=== PATIENT | female | born 1930 | race Caucasian/White ===

== ENCOUNTER → 2016-10-17 | Outpatient (CLI) | payer OTHER, MEDICARE ==
[~2016-10-17] MED LIST: ALD2525 PO; ALUMCHW2 PO; ASPEC81 PO; ASPI81TA21 PO; ATOR10TA88 PO; BENZ100C84 PO; BUPR100T8 PO; CITA20TA4 PO; CLOB-58 TOP; FRC PO; HYDR-3785 PO; LEVO-217 PO; LEVO50TA PO; MAGN250T3 PO; MAGN400T6 PO; METHPOW7 PO; MULT-190 PO; OXYC-106 PO; POLY335019 PO; POLY335040 PO; POTATAB PO; RANI150T3 PO; SENN-65 PO; SERT-234 PO; SPIR50TA PO
[2016-10-17 17:19] LABS: HEMATOCRIT 36.8 % (37-47); MEAN CELL VOLUME 80.7 fL (80-100); MEAN PLATELET VOLUME 9.4 fL (7.4-10.4); PLATELET COUNT 247 K/uL (130-400); RED BLOOD COUNT 4.56 M/uL (4.2-5.4); WHITE BLOOD COUNT 17.51 K/uL (4.8-10.8)
[2016-10-17 17:33] LABS: BLOOD UREA NITROGEN 16 mg/dl (7-18); BUN/CREATININE RATIO 19.5 (10-20); CARBON DIOXIDE 28 mmol/L (21-32); CHLORIDE 105 mmol/L (98-107); GLUCOSE 89 mg/dl (70-99); POTASSIUM 4.4 mmol/L (3.5-5.1); SODIUM 141 mmol/L (136-145)
[2016-10-17 18:17] LABS: BASO % 0.3 %; BASO ABS # 0.05 K/uL (0-0.2); COMPLETE YES; EOS % 1.7 %; IG% 0.3 %; LYMPH % 36.1 %; LYMPH ABS # 6.32 K/uL (1.2-3.4); MONO % 6.7 %; NEUT % 54.9 %; SMUDGE CELLS PRESENT
== END | disposition home or self-care (01) ==
LOC: C.LAB1850 16:02
PROVIDERS: ATTEND Internal Medicine
DX: E03.9 Hypothyroidism, unspecified (principal); R53.1 Weakness

== ENCOUNTER → 2016-11-03 | Outpatient (CLI) | payer OTHER, MEDICARE ==
--- NOTE | 2016-11-03 12:30 | DIAGNOSTIC IMAGING REPORT ---
CHEST 2 VIEWS ROUTINE CLINICAL HISTORY: R05 [id number] cough. COMPARISON STUDY: No previous studies for comparison. FINDINGS: Minimal retrocardiac infiltrate of the posterior costophrenic angle. Lungs otherwise are clear. No evidence for cardiac enlargement. IMPRESSION: Minimal infiltrative process costophrenic angle Electronically signed by: Kimani George M.D. 11/03/2016 12:29 PM Dictated Date/Time: 11/03/2016 12:28 PM
== END | disposition home or self-care (01) ==
LOC: C.RAD1850 12:05
PROVIDERS: ATTEND Physician Assistant
DX: R05 Cough (principal)

== ENCOUNTER 2016-11-18 21:30 | Emergency (ER) | payer OTHER, MEDICARE ==
[~2016-11-18] VITALS: Ht 167.6 cm; Wt 65.1 kg
[~2016-11-18 21:30] MED LIST changes: -ALUMCHW2 PO; -ASPI81TA21 PO; +ATOR10TA82 PO; -ATOR10TA88 PO; -BENZ100C84 PO; -LEVO50TA PO; -MAGN400T6 PO; -METHPOW7 PO; -MULT-190 PO; -POLY335019 PO; -SPIR50TA PO
[2016-11-18 21:41] VITALS: TEMP 36.5; Ht 167.6 cm; Wt 65.1 kg
[2016-11-18 21:47] VITALS: O2SAT 96
[2016-11-18] MEDS ORDERED: POLY335019 PO (22:18)
[2016-11-18] MEDS ORDERED: METHPOW7 PO (22:18)
[2016-11-18] MEDS ORDERED: BENZ100C84 PO (22:18)
[2016-11-18] MEDS ORDERED: MULT-190 PO (22:18)
[2016-11-18] MEDS ORDERED: OXYC-106 PO (22:18)
[2016-11-18] MEDS ORDERED: LEVO50TA PO (22:18)
[2016-11-18] MEDS ORDERED: SPIR50TA PO (22:18)
[2016-11-18] MEDS ORDERED: ASPI81TA21 PO (22:18)
[2016-11-18] MEDS ORDERED: MAGN400T6 PO (22:18)
[2016-11-18] MEDS ORDERED: ALUMCHW2 PO (22:23)
[2016-11-18] MEDS ORDERED: OXYCODONE/ACETAMINOPHEN 5-325 TAB PO ONE (22:45)
[2016-11-18 23:06] LABS: HEMATOCRIT 37.2 % (37-47); MEAN CELL VOLUME 78.6 fL (80-100); MEAN CORPUSCULAR HEMOGLOBIN 25.8 pg (25-34); MEAN CORPUSCULAR HGB CONC 32.8 g/dl (32-36); MEAN PLATELET VOLUME 8.6 fL (7.4-10.4); PLATELET COUNT 254 K/uL (130-400); RED BLOOD COUNT 4.73 M/uL (4.2-5.4); WHITE BLOOD COUNT 15.46 K/uL (4.8-10.8)
[2016-11-18 23:24] LABS: BUN/CREATININE RATIO 19.7 (10-20); CALCIUM 9.7 mg/dl (8.5-10.1); CREATININE 0.78 mg/dl (0.60-1.20); POTASSIUM 3.8 mmol/L (3.5-5.1)
--- NOTE | 2016-11-18 23:39 | EMERGENCY ROOM VISIT NOTE ---
ED Visit Note First contact with patient: 22:24 I have personally seen and evaluated the patient with the physician actuarial assistant. I agree with the diagnostic/management decisions and have personally been involved in these decisions and agree with the diagnosis.
[2016-11-19 00:30] LABS: BASO % 0.5 %; BASO ABS # 0.07 K/uL (0-0.2); COMPLETE YES; EOS % 2.5 %; IG% 0.3 %; LYMPH % 40.6 %; LYMPH ABS # 6.27 K/uL (1.2-3.4); MONO % 4.6 %; NEUT % 51.5 %
--- NOTE | 2016-11-19 03:18 | EMERGENCY ROOM VISIT NOTE ---
History First contact with patient: 22:24 Chief Complaint: FALL Stated Complaint: FALL/HEAD&BACK PAIN, FR [facility] History of Present Illness The patient is a 86 year old female who presents to the Emergency Room with complaints of fall from the toilet while at the [facility]. Patient states she laid on the ground from us in our for someone helped her. Patient complains of right hip and right knee pain. She landed on her right side. She describes the pain as throbbing, ranging in severity 5 out of 10. 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 She ambulates with a walker. Patient denies head injury, headache, neck pain, back pain, chest pain, dyspnea, abdominal pain, numbness, tingling, arm pain, thigh pain, spring pain, foot pain. Review of Systems See HPI for pertinent positives & negatives. A total of 10 systems reviewed and were otherwise negative. Past Medical/Surgical History HTN, HLP, TSH, GERD, knee replacement Social History Smoking Status: Unknown if Ever Smoked Drug Use: none Marital Status: Occupation Status: retired Current/Historical Medications Scheduled Aluminum Hydroxide-Mag Trisil (Gaviscon), 1 TAB PO PRN Aspirin Enteric Coated (Ecotrin Or Generic), 81 MG PO DAILY Atorvastatin (Lipitor), 10 MG PO QPM Bupropion (Wellbutrin Sr), 1 TAB PO QAM Hctz/Spironolactone 25MG/25MG (Aldactazide 25MG/25MG), 1 TAB PO DAILY Levothyroxine Sodium (Synthroid), 50 MCG PO DAILY Magnesium Oxide (Mag-Ox), 400 MG PO DAILY Methylcellulose (Laxative) (Citrucel Fiber Laxative), 1 TBS PO HS Ocuvite Preservision (Ocuvite Preservision), 1 TAB PO DAILY Polyethylene Glycol 3350 (Miralax), 17 GM PO DAILY Ranitidine Hcl (Zantac), 150 MG PO BID Sertraline (Zoloft), 1 TAB PO DAILY Scheduled PRN Benzonatate (Tessalon Perles), 100 MG PO TID PRN for Cough Oxycodone/Acetaminophen 10MG/325MG (Percocet 10MG/325MG), 1 TAB PO Q8 PRN for Pain Allergies Coded Allergies: Meperidine (Verified Adverse Reaction, Mild, VOMITING, 06/18/12) Physical Exam Vital Signs Date Time Temp Pulse Resp B/P Pulse Ox O2 Delivery O2 Flow Rate FiO2 11/19/16 01:22 83 16 136/68 96 Room Air 11/18/16 23:43 81 20 138/76 96 Room Air 11/18/16 21:50 88 11/18/16 21:47 96 Room Air 11/18/16 21:41 36.5 90 18 163/73 96 Room Air Physical Exam PHYSICAL EXAM: VITALS: Vitals are noted on the nurse's note and reviewed by myself. Vital signs hypertensive GENERAL: Pleasant elderly female, in no acute distress, nondiaphoretic, well- developed well-nourished. SKIN: Right hip, thigh, knee and spring erythematous concerning for pressure ulcer. Left great toe with contusion present The rest of the skin was without obvious lacerations or abrasions. Capillary reflex less than 2 seconds. HEAD: Normocephalic atraumatic. EARS: External auditory canals clear, tympanic membranes pearly khan without erythema or effusion bilaterally. No hemotympanums. No foley sign. No mastoid tenderness. EYES: Pupils equal round and reactive to light and accommodation. Conjunctivae without injection, sclerae without icterus. Extraocular movements intact. NOSE: Patent, turbinates without inflammation or discharge. No sinus tenderness. No septal hematoma or bleeding. FACE: No facial bone tenderness. Full range of motion of the jaw without tenderness. MOUTH: Mucous membranes moist. Pharynx without erythema or exudate. Uvula midline. Airway patent. Tongue does not deviate. NECK: Supple without nuchal rigidity. Cervical spine is nontender. Full range of motion of the neck without tenderness. No JVD. HEART: Regular rate and rhythm LUNGS: Clear to auscultation bilaterally without wheezes, rales or rhonchi. No dullness to percussion. No retractions or accessory muscle use. No chest wall tenderness. ABDOMEN: Positive bowel sounds x 4. Normal tympanic percussion. Soft, nontender, without masses or organomegaly. No guarding or rebound tenderness. MUSCULOSKELETAL: No tenderness of the thoracic or lumbar spine. Right hip tender to palpation with increased pain with range of motion, right knee tender to palpation chronically deformed per patient unchanged, right thigh, spring, foot and ankle nontender to palpation.. Full range of motion without tenderness to palpation in all other extremities. Peripheral pulses 2+. NEURO: Patient was alert and oriented to person place and time. Normal Mini- Mental status exam. Normal sensation to light and sharp touch Cerebellar function intact. No focal neurological deficits. Medical Decision & Procedures Laboratory Results 11/18/16 22:45 Red Blood Count 4.73, Mean Corpuscular Volume 78.6, Mean Corpuscular Hemoglobin 25.8, Mean Corpuscular Hemoglobin Concent 32.8, Mean Platelet Volume 8.6, Neutrophils (%) (Auto) 51.5, Lymphocytes (%) (Auto) 40.6, Monocytes (%) (Auto) 4.6, Eosinophils (%) (Auto) 2.5, Basophils (%) (Auto) 0.5, Neutrophils # (Auto) 7.98, Lymphocytes # (Auto) 6.27, Monocytes # (Auto) 0.71, Eosinophils # (Auto) 0.38, Basophils # (Auto) 0.07 11/18/16 22:45 Test 11/18/16 22:45 White Blood Count 15.46 K/uL (4.8-10.8) Red Blood Count 4.73 M/uL (4.2-5.4) Hemoglobin 12.2 g/dL (12.0-16.0) Hematocrit 37.2 % (37-47) Mean Corpuscular Volume 78.6 fL (80-100) Mean Corpuscular Hemoglobin 25.8 pg (25-34) Mean Corpuscular Hemoglobin Concent 32.8 g/dl (32-36) Platelet Count 254 K/uL (130-400) Mean Platelet Volume 8.6 fL (7.4-10.4) Neutrophils (%) (Auto) 51.5 % Lymphocytes (%) (Auto) 40.6 % Monocytes (%) (Auto) 4.6 % Eosinophils (%) (Auto) 2.5 % Basophils (%) (Auto) 0.5 % Neutrophils # (Auto) 7.98 K/uL (1.4-6.5) Lymphocytes # (Auto) 6.27 K/uL (1.2-3.4) Monocytes # (Auto) 0.71 K/uL (0.11-0.59) Eosinophils # (Auto) 0.38 K/uL (0-0.5) Basophils # (Auto) 0.07 K/uL (0-0.2) RDW Standard Deviation 48.3 fL (36.4-46.3) RDW Coefficient of Variation 16.9 % (11.5-14.5) Immature Granulocyte % (Auto) 0.3 % Immature Granulocyte # (Auto) 0.05 K/uL (0.00-0.02) Anion Gap 9.0 mmol/L (3-11) Est Creatinine Clear Calc Drug Dose 46.6 ml/min Estimated GFR () 78.7 Estimated GFR (Non- 67.9 BUN/Creatinine Ratio 19.7 (10-20) Calcium Level 9.7 mg/dl (8.5-10.1) Total Creatine Kinase 55 U/L (26-192) Medications Administered Medications (Trade) Dose Ordered Sig/Linda Route Start Time Stop Time Status Last Admin Dose Admin Oxycodone/ Acetaminophen (Percocet 5-325mg Tab) 1 tab NOW ONCE PO 11/18/16 22:45 11/18/16 22:46 DC 11/18/16 22:51 1 TAB ED Course Prior records/ancillary studies reviewed. Triage Nursing notes reviewed. Additional history obtained from nursing The patient's history was concerning for traumatic injury Differential diagnosis: Etiologies such as fracture, rhabdomyolysis, dislocation, intra-abdominal, pneumothorax, intrathoracic , intracranial, neurologic, as well as other traumatic pathologies were entertained. Physical examination findings: As above. The patients vitals were stable. ER treatment provided: Percocet, ice pack On reassessment the patient felt better. Vital signs were stable. Diagnostic interpretation by me: The labs revealed leukocytosis, stable per chart review. Imaging studies: Hip x-ray with no acute fracture or dislocation per my interpretation, knee x- ray with chronic dislocation per chart review and comparison prior x-rays and per history of the patient This appears to be consistent with fall with muscle skeletal injuries. Patient was neurovascularly and neurologically intact. She is well-appearing. No other injuries are noted. She was advised to follow-up with her orthopedic doctor in a few days or here in the ER sooner for chest pain, difficulty breathing, severe pain, numbness, tingling, worsening signs or symptoms or as needed. [facility] condition.. By the evaluation outlined above emergent etiologies such as fracture,new dislocation, intra-abdominal, pneumothorax, pulmonary contusion, hemothorax, intracranial, neurologic,as well as others were deemed relatively unlikely. The pt informed about the findings as listed above. All questions were answered and pleased with the treatment. Return instructions were outlined and the patient was discharged in stable condition. Referral: The patient was referred to her orthopedics for follow-up in 2 to 3 days for a recheck of the current condition. Case reviewed with my attending Medical Decision As above Impression Primary Impression: Injury of right hip Additional Impressions: Right knee injury Fall Departure Information Dispostion Home / Self-Care Condition GOOD Referrals Cas Spencer M.D. (PCP) Patient Instructions My [facility] Additional Instructions Ibuprofen(Motrin, Advil) may be used for fever or pain. Use 600mg every six hours as needed. Take with food. Avoid using more than 2400mg in a 24 hour period. Do not use 2400mg per day for more than three consecutive days without physician direction. Prolonged inappropriate use can lead to stomach upset or ulcers. This medication can be taken if you need to drive, work, or perform activities which may be dangerous when taking narcotic pain medication. (AND/OR) Acetaminophen(Tylenol) may be used for fever or pain. Use 1000mg every six hours as needed. Avoid using more than 3000mg in a 24 hour period. This medication can be taken if you need to drive, work, or perform activities which may be dangerous when taking narcotic pain medication. Ice compresses for 20 minutes at a time four times daily for 2-3 days. Always ambulate with your walker. Rest and elevate your injury. Continue current medications. Return to the ER immediately for any numbness, tingling, severe pain, extreme swelling in the extremity or as needed. Call your Orthopedics on Monday to arrange follow up for your injury. Problem Qualifiers Primary Impression: Injury of right hip Encounter type: initial encounter Qualified Codes: S79.911A - Unspecified injury of right hip, initial encounter Additional Impressions: Right knee injury Encounter type: initial encounter Qualified Codes: S89.91XA - Unspecified injury of right lower leg, initial encounter Fall Encounter type: initial encounter Qualified Codes: W19.XXXA - Unspecified fall, initial encounter
[2016-11-19 04:19] VITALS: BP 149/79; PULSE 67; O2SAT 97
--- NOTE | 2016-11-19 06:12 | DIAGNOSTIC IMAGING REPORT ---
AP PELVIS AND RIGHT HIP 4 VIEWS CLINICAL HISTORY: Pelvic and hip pain status post trauma COMPARISON STUDY: No previous studies for comparison. FINDINGS: The bones are osteopenic. No fractures or dislocations are visualized. Mild irregularity of the right symphysis pubis is likely chronic. If the patient has persistent symptoms, a CT scan or MRI could always be obtained in follow-up. IMPRESSION: No acute fractures identified on conventional radiographic imaging. Mild irregularity of the symphysis is likely chronic. Electronically signed by: Chauncey Villarreal M.D. 11/19/2016 6:10 AM Dictated Date/Time: 11/19/2016 6:07 AM
--- NOTE | 2016-11-19 06:24 | DIAGNOSTIC IMAGING REPORT ---
RIGHT KNEE 1 OR 2 VIEWS ROUTINE CLINICAL HISTORY: Right knee pain status post trauma COMPARISON: 01/04/2016 DISCUSSION: There are postsurgical changes of a total knee arthroplasty and patellar resurfacing. There is a posterior dislocation of the prosthesis. There is a lucency surrounding the tibial prosthesis and loosening the tibial component is suspected. There is a probable fracture of the distal femur at the level of the femoral component. IMPRESSION: 1. Dislocated total knee arthroplasty 2. Abnormal tilt of the tibial component with suspected tibial component loosening 3. Suspected fracture of the distal femur at the level of the femoral component Electronically signed by: Chauncey Villarreal M.D. 11/19/2016 6:22 AM Dictated Date/Time: 11/19/2016 6:18 AM
== END 2016-11-19 04:29 | disposition home or self-care (01) ==
LOC: EDBD 21:30 → C.EDB 21:32
DX: M25.551 Pain in right hip (principal); M25.561 Pain in right knee; W18.11XA Fall from or off toilet without subsequent striking against object, initial encounter; Y92.121 Bathroom in nursing home as the place of occurrence of the external cause; I10 Essential (primary) hypertension; Z96.651 Presence of right artificial knee joint

== ENCOUNTER → 2017-04-14 | Outpatient (CLI) | payer OTHER, MEDICARE ==
[~2017-04-14] MED LIST changes: -ALD2525 PO; +ALUMCHW2 PO; -ASPEC81 PO; +ASPI81TA21 PO; -ATOR10TA82 PO; +ATOR10TA88 PO; +BENZ100C84 PO; -CITA20TA4 PO; -CLOB-58 TOP; -FRC PO; -HYDR-3785 PO; -LEVO-217 PO; +LEVO50TA PO; -MAGN250T3 PO; +MAGN400T6 PO; +METHPOW7 PO; +MULT-190 PO; +POLY335019 PO; -POLY335040 PO; -POTATAB PO; -SENN-65 PO; +SPIR50TA PO
== END | disposition home or self-care (01) ==
LOC: C.RDSM 10:06
PROVIDERS: ATTEND Physical Medicine & Rehabilitation Sports Medicine
DX: M25.561 Pain in right knee (principal)

== ENCOUNTER → 2017-11-14 | Outpatient (CLI) | payer OTHER, MEDICARE ==
[~2017-11-14] MED LIST changes: +ATOR10TA82 PO; -ATOR10TA88 PO
== END | disposition home or self-care (01) ==
LOC: C.LABSPEC 15:53
PROVIDERS: ATTEND Physician Assistant
DX: S81.001A Unspecified open wound, right knee, initial encounter (principal); X58.XXXA Exposure to other specified factors, initial encounter